=== PATIENT | female | born 1980 | race Hispanic/Latino ===

== ENCOUNTER 2017-03-22 04:21 | Observation (INO) | payer SELFPAY ==
[2017-03-22 05:05] LABS: #Eosinphils 0.2 thou/uL (0.0-0.7); #Lymphocytes 2.4 thou/uL (1.20-3.40); #Monocytes 0.7 thou/uL (0.11-0.59); #Neutrophils 10.9 thou/uL (1.40-6.50); %Eosinophils 1.1 % (0.0-10.0); %Lymphocytes 17.3 % (21.0-51.0); %Monocytes 4.7 % (0.0-10.0); Hematocrit 40.2 % (36.0-47.0); Mean Platelet Volume 7.6 fL (7.4-10.4); White Blood Cell (WBC) Count 14.1 thou/uL (4.8-10.8)
[2017-03-22] MEDS ORDERED: Fentanyl 100 MCG/2 ML VIAL ONE ×2 (05:08→11:11)
[2017-03-22] MEDS ORDERED: Ondansetron HCl/PF 4 MG/2 ML Vial ONE ×2 (05:08→11:28)
[2017-03-22 05:28] LABS: ALT (SGPT) 16 U/L (8-55); AST (SGOT) 18 U/L (5-34); Alkaline Phosphatase 85 U/L (40-150); Anion Gap 12 mmol/L (10-20); BUN (Urea Nitrogen) 12 mg/dL (7.0-18.7); Bilirubin, Total 0.3 mg/dL (0.2-1.2); Calc. Creatinine Clearance 0 mL/min (70-130); Calcium 9.4 mg/dL (7.8-10.44); Carbon Dioxide 25 mmol/L (22-29); Chloride 103 mmol/L (98-107); Estimated GFR-MDRD 84; Globulin 3.7 g/dL (2.4-3.5); Lipase 24 U/L (8-78); Protein, Total 8.1 g/dL (6.0-8.3)
[2017-03-22] MEDS ORDERED: Morphine 10 MG/ML VIAL ONE (06:24)
[2017-03-22] MEDS ORDERED: Ampicillin/Sulbactam 3 GM, Syringe 1.6 ML in Sterile Water 6.4 ML SLOW IVP SCH (06:30)
[2017-03-22] MEDS ORDERED: cefOXitin 2 GM in Sodium Chloride 0.9% 100 ML IVPB SCH ×2 (07:45→14:00)
[2017-03-22] MEDS ORDERED: cefOXitin 2 GM, Syringe 1 ML in Sterile Water 10 ML SLOW IVP SCH (08:15)
[2017-03-22] MEDS ORDERED: cefOXitin 2 GM VIAL SLOW IVP SCH (08:15)
--- NOTE | 2017-03-22 08:56 | HP ---
CHIEF COMPLAINT: Midepigastric abdominal pain. HISTORY OF PRESENT ILLNESS: This is a 37-year-old female with a 2-day history of midepigastric and right upper quadrant pain, radiating to the back associated with nausea and vomiting. No fevers. PAST MEDICAL HISTORY: Otherwise, healthy. PAST SURGICAL HISTORY: None. MEDICATIONS: Phentermine. ALLERGIES: No known drug allergies. SOCIAL HISTORY: She is , no tobacco or alcohol. 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 FAMILY HISTORY: Noncontributory. PHYSICAL EXAMINATION: VITAL SIGNS: Afebrile, pulse 54, blood pressure 146/83. GENERAL: Well-developed, well-nourished female in minimal distress. HEENT: No jaundice. LUNGS: Clear. HEART: Regular rate and rhythm. ABDOMEN: Soft. Tender to palpation in the right upper quadrant with plus/minus Phillips sign. EXTREMITIES: Unremarkable. LABORATORY DATA: White count 14, H\T\H 13 and 40, platelet count 298. Electrolytes are fine. LFTs normal. Ultrasound shows cholelithiasis with thickened gallbladder wall. ASSESSMENT: Symptomatic cholelithiasis. PLAN: Laparoscopic cholecystectomy. CONSENT: I have discussed the planned procedure as well as risk of bleeding, infection, injury to b ile duct, injury to bowel, need to open. She understands and gives informed consent.
--- NOTE | 2017-03-22 09:21 | ULT ---
PRELIMINARY REPORT/[facility]/EMERGENCY AFTER HOURS PROCEDURE: EXAM: US Abdomen Limited, Right Upper Quadrant CLINICAL HISTORY: The patient is a 37 years old, female; Pain; Other: Upper abd pain TECHNIQUE: Real-time ultrasound of the right upper quadrant with image documentation. COMPARISON: No relevant prior studies available. FINDINGS: LIVER: Unremarkable. No mass. No intrahepatic bile duct dilation. Normal color Doppler vascular flow in the main portal vein towards the liver. GALLBLADDER: Cholelithiasis. The gallbladder is distended with multiple calculi. The gallbladder wal l is borderline thickened measuring 3.3 mm with some questionable pericholecystic fluid and a positi ve sonographic Pihllips's sign suggestive of acute cholecystitis. COMMON BILE DUCT: The common bile duct measures 2.8 mm diameter. No evidence of obstructive cholangi opathy. No stones. No dilation. PANCREAS: Unremarkable as visualized. RIGHT KIDNEY: Unremarkable. No stones. No solid mass. No hydronephrosis. The right kidney measures 1 2.0 x 4.2 x 5.1 cm in size. IMPRESSION: 1. Cholelithiasis. The gallbladder is distended with multiple calculi. The gallbladder wall is borderline thickened wagner suring 3.3 mm with some questionable pericholecystic fluid and a positive sonographic Phillips's sign suggestive of acute cholecystitis. 2. The common bile duct measures 2.8 mm diameter. No evidence of obstructive cholangiopathy. Thank you for allowing us to participate in the care of your patient. Dictated and Authenticated by: Adam Magaña MD 03/22/2017 6:49 AM Central Time ([place] \T\ [place]) FINAL REPORT RIGHT UPPER QUADRANT ULTRASOUND: Date: 03/22/17 FINDINGS/IMPRESSION: I agree with the preliminary report given by Dr. Adam Magaña of [facility]. POS: [facility]
[2017-03-22] MEDS ORDERED: Morphine 4 MG/ML VIAL ONE (10:50)
[2017-03-22] MEDS ORDERED: Lidocaine 2% w/Epinephrine 1:200K 20 ML VIAL ONE (11:12)
[2017-03-22] MEDS ORDERED: Bupivacaine 0.25% HCL 30 ML VIAL ONE (11:12)
[2017-03-22] MEDS ORDERED: Lidocaine 2% MPF 10 ML AMP (For Epidural Use) ONE (11:28)
[2017-03-22] MEDS ORDERED: Dexamethasone 20 MG/5 ML VIAL ONE (11:28)
[2017-03-22] MEDS ORDERED: Propofol 200 MG/20 ML VIAL ONE (11:28)
[2017-03-22] MEDS ORDERED: Ketorolac Tromethamine 30 MG/ML VIAL ONE (11:28)
[2017-03-22] MEDS ORDERED: Glycopyrrolate 0.2 MG/ML 5 ML SYRINGE ONE (11:28)
[2017-03-22] MEDS ORDERED: Ondansetron HCl/PF 4 MG/2 ML Vial IVP PRN ×2 (11:54→12:03)
[2017-03-22] MEDS ORDERED: HYDROmorphone 2 MG/ML VIAL SLOW IVP PRN (11:54)
[2017-03-22] MEDS ORDERED: Meperidine HCl/PF 25 MG/ML VIAL SLOW IVP PRN (11:54)
[2017-03-22] MEDS ORDERED: Promethazine HCl 25 MG/ML VIAL IM PRN ×2 (11:54→12:03)
[2017-03-22] MEDS ORDERED: Promethazine HCl 25 MG/ML VIAL SLOW IVP PRN (11:54)
[2017-03-22] MEDS ORDERED: Mag-Al 1200 mg/1200 mg/30 ML UDCUP PO PRN (12:03)
[2017-03-22] MEDS ORDERED: Calcium Carbonate 500 MG ChewTAB PO PRN (12:03)
[2017-03-22] MEDS ORDERED: HYDROcodone/Acetaminophen 10/325 mg Tablet PO PRN ×2 (12:03)
[2017-03-22] MEDS ORDERED: Dextrose 50% Abboject 50 ML SYRINGE SLOW IVP PRN (12:03)
[2017-03-22] MEDS ORDERED: hydrALAZINE 20 MG/ML VIAL SLOW IVP PRN (12:03)
[2017-03-22] MEDS ORDERED: Dextrose 5% in Water 1,000 ML IV PRN (12:03)
[2017-03-22] MEDS ORDERED: Morphine 4 MG/ML VIAL SLOW IVP PRN ×2 (13:15)
--- NOTE | 2017-03-22 13:27 | OP ---
PREOPERATIVE DIAGNOSIS: Acute cholecystitis. SURGEON: Ruiz Ontiveros M.D. PROCEDURE PERFORMED: Laparoscopic cholecystectomy. INDICATIONS: A 37-year-old female with a 24-hour history of severe right upper quadrant pain associ ated with nausea, vomiting, leukocytosis. Ultrasound showing multiple cholelithiasis. FINDINGS: Thickened gallbladder wall, distended with purulent fluid, multiple large stones, small c aliber cystic duct. PROCEDURE: After informed consent was obtained, the patient was taken to the operating room and giv en general endotracheal anesthesia, was placed in the supine position. The abdomen was prepped and draped in the usual fashion. Local anesthesia infiltrated subcutaneously and deep. A subumbilical incision was performed. The subcu divided sharply. The fascia grasped and two stay sutures of 0 Vi cryl placed to either side of midline. Midline incised. Digital palpation revealed no local adhesi ons. A blunt 10-12 mm trocar inserted. Pneumoperitoneum was created to a pressure of 15 mmHg. A 0 degree laparoscope inserted under direct vision. Three 5 mm ports placed subcostally. The gallbla dder was very distended. A 100 mL of thick purulent appearing bile was removed utilizing an aspirat ing needle. The gallbladder was then grasped and advanced superiorly. Peritoneum lysed dissected o ut the cystic duct and cystic artery and critical view. These were triply ligated and divided. The gallbladder was removed from its fossa utilizing electrocautery, removed from the abdomen through t he umbilical port and it was placed in an Endosac and removed through the umbilical port. Hemostasi s assured with electrocautery. Trocars and retractors removed. The fascia closed with interrupted 0 Vicryl suture. Skin closed with interrupted 4-0 Rapide. Dermabond applied. The patient tolerate d the procedure well and was transferred to recovery in good condition. Sponge and needle count abraham ified correct x2.
[2017-03-22] MEDS: D5 1/2 NS w/20 mEq KCL 1,000 ML IV SCH (16:09)
[2017-03-22] MEDS: Ketorolac Tromethamine 30 MG/ML VIAL IVP SCH (18:02)
[2017-03-22] MEDS: cefOXitin 2 GM, Syringe 1 ML in Sterile Water 10 ML SLOW IVP SCH (20:11)
[2017-03-22] MEDS: Famotidine 20 MG TAB PO SCH (20:12)
[2017-03-22] MEDS ORDERED: Famotidine/PF 20 mg/2ml Vial SLOW IVP SCH (21:00)
[2017-03-23] MEDS: D5 1/2 NS w/20 mEq KCL 1,000 ML IV SCH ×2 (00:10→05:52)
[2017-03-23] MEDS: Ketorolac Tromethamine 30 MG/ML VIAL IVP SCH ×2 (00:11→04:55)
[2017-03-23] MEDS: cefOXitin 2 GM, Syringe 1 ML in Sterile Water 10 ML SLOW IVP SCH (04:54)
[2017-03-23 05:10] LABS: ALT (SGPT) 129 U/L (8-55); AST (SGOT) 87 U/L (5-34); Alkaline Phosphatase 67 U/L (40-150); Anion Gap 12 mmol/L (10-20); BUN (Urea Nitrogen) 9 mg/dL (7.0-18.7); Bilirubin, Total 0.4 mg/dL (0.2-1.2); Calc. Creatinine Clearance 130 mL/min (70-130); Calcium 8.7 mg/dL (7.8-10.44); Carbon Dioxide 22 mmol/L (22-29); Chloride 109 mmol/L (98-107); Estimated GFR-MDRD Greater than 90; Globulin 2.9 g/dL (2.4-3.5); Lipase 12 U/L (8-78); Protein, Total 6.5 g/dL (6.0-8.3)
[2017-03-23 05:31] LABS: Band 16 % (5-11); Hematocrit 35.6 % (36.0-47.0); Mean Platelet Volume 7.9 fL (7.4-10.4); Neutrophil 72 % (42-75); Red Blood Cell (RBC) Count 3.76 mill/uL (4.20-5.40); White Blood Cell (WBC) Count 22.3 thou/uL (4.8-10.8)
[2017-03-23] MEDS: Famotidine 20 MG TAB PO SCH (08:19)
[2017-03-23] MEDS ORDERED: Enoxaparin Sodium 40 MG/0.4 ML SYRINGE SC SCH (09:00)
[2017-03-23 10:51] VITALS: BP 124/73; TEMP 98.2
--- NOTE | 2017-03-23 12:29 | DIS ---
DISCHARGE DIAGNOSIS: Acute cholecystitis. PROCEDURES DURING ADMISSION: Laparoscopic cholecystectomy. HOSPITAL COURSE: The patient was admitted, given IV antibiotics, taken to the operating room where she underwent a laparoscopic cholecystectomy. Postoperatively, she has done well. She is basically free of pain. She is tolerating diet. She is discharged home in good condition on hydrocodone and Zofran as well as doxycycline. She will follow up with me in 2 weeks.
== END 2017-03-23 11:02 | disposition home or self-care (01) ==
LOC: ERS 04:21 → SDC 08:39 → SURG A 09:19
PROVIDERS: ADMIT Surgery; ATTEND Surgery
PROC: 0FT44ZZ Resection of Gallbladder, Percutaneous Endoscopic Approach (ICD-10-PCS; principal; 2017-03-23)
DX: K80.12 Calculus of gallbladder with acute and chronic cholecystitis without obstruction (principal); Z79.2 Long term (current) use of antibiotics; Z79.899 Other long term (current) drug therapy
CPT/HCPCS: 36415; 76705; 80053; 83690; 84702; 85025; 88304; 96361; 96372; 96374; 96375; 96376; A4216; G0378; J0295; J0694; J1100; J1885; J2001; J2270; J2405; J2704; J3010; S0020; S0028